=== PATIENT | female | born 1965 | race Caucasian/White ===

== ENCOUNTER → 2020-07-25 13:46 | Outpatient (CLI) | payer MEDICARE ==
[2020-05-31 14:59] VITALS: BMI 25.0
[~2020-07-25 13:46] MED LIST: ACIDOPHILUS-PE1 EACH PO; BACTRIM DS TAB1 EAC1 PO; DIFLUCAN100 MG PO; HUMALOG 30100 UNITS/ SC; KEPPRA1000 MG PO; NEURONTIN 400400 MG PO; NICODERM CQ1 EAC3 TOPICAL; NOVOLOG100 UNIT/1 SC; PROTONIX40 MG PO
== END | disposition home or self-care (01) ==
LOC: D.CT 07-24 13:00
PROVIDERS: ATTEND Surgery
DX: L02.415 Cutaneous abscess of right lower limb (principal)

== ENCOUNTER 2020-07-27 09:30 | Day surgery (SDC) | payer MEDICARE ==
[2020-07-27] VITALS (10 sets, daily range): BP systolic 117–155; BP diastolic 41–67; Ht 167.6 cm; Wt 70.5 kg
[~2020-07-27] VITALS: Ht 167.6 cm; Wt 70.5 kg
[2020-07-27 10:00] LABS: APTT 31.5 SECONDS (22.8-39.4); INR 1.38 (0.85-1.17); PROTIME 15.7 SECONDS (11.6-15.0)
[2020-07-27 10:05] LABS: ALBUMIN 2.4 g/dL (3.4-5.0); ALKALINE PHOSPHATASE 163 U/L (30-120); ALT (SGPT) 26 U/L (10-68); BILIRUBIN - TOTAL 0.92 mg/dL (0.2-1.3); CALC OSMOLALITY 286 mosm/kg (275-300); CALCIUM 8.6 mg/dL (8.5-10.1); CARBON DIOXIDE 31.9 mmol/L (21.0-32.0); CHLORIDE - SERUM 101 mmol/L (98-107); CREATININE - SERUM 0.8 mg/dL (0.6-1.3); POTASSIUM - SERUM 3.8 mmol/L (3.5-5.1); PROTEIN - SERUM 8.9 g/dL (6.4-8.2); SODIUM 138 mmol/L (136-145); UREA NITROGEN 5 mg/dL (7-18); eGFR NON AFRICAN AMERICAN 79 mL/min (90-120)
[2020-07-27 10:07] LABS: GLUCOSE 348 mg/dL (74-106)
[2020-07-27 10:30] LABS: BASOPHILS 0.4 % (0-2); EOSINOPHILS 2.8 % (0-7); HEMATOCRIT 35.1 % (36.0-48.0); HEMOGLOBIN 11.7 g/dL (12-16); IMMATURE GRANULOCYTES 0.2 % (0-5); LYMPHOCYTE ABS# 1.32 10x3/uL (1.18-3.74); LYMPHOCYTES 28.6 % (15-50); MCH 27.6 pg (26.0-34.0); MCHC 33.3 g/dL (31.0-37.0); MCV 82.8 fL (80.0-100.0); MONOCYTES 6.9 % (2-11); NEUTROPHIL ABS# 2.81 10x3/uL (1.56-6.13); NEUTROPHILS 61.1 % (40-80); PLATELET COUNT 91 10x3/uL (130-400); RBC 4.24 10x6/uL (4.00-5.40); RDW 15.9 % (11.5-14.5); WBC 4.6 10x3/uL (4.8-10.8)
[2020-07-27 11:16] LABS: PLATELET ESTIMATE DECREASED
--- NOTE | 2020-07-27 12:08 | NUR ---
FSBS RECHECK [id number]
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
--- NOTE | 2020-07-27 15:25 | NUR ---
PATIENT'S AT BEDSIDE PER PATIENT REQUEST. PATIENT REQUESTED AND GIVEN SANDWICH TRAY AND ORANGE JUICE. DENIES FURTHER NEEDS.
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
[2020-07-28 04:00] VITALS: BP 122/53
--- NOTE | 2020-07-28 04:23 | NUR ---
Microbiology came to inform nurse that culture to Rle is positive for staph. Awaiting results for MRSA. Pt placed on appropriate precaustions. Pt's spouse in room and sleeping next to her in bed. Did not want to DON PPE.
[2020-07-28 06:44] LABS: ALKALINE PHOSPHATASE 153 U/L (30-120); ALT (SGPT) 23 U/L (10-68); BILIRUBIN - TOTAL 0.43 mg/dL (0.2-1.3); CALC OSMOLALITY 287 mosm/kg (275-300); CALCIUM 8.6 mg/dL (8.5-10.1); CARBON DIOXIDE 29.4 mmol/L (21.0-32.0); CHLORIDE - SERUM 104 mmol/L (98-107); CREATININE - SERUM 0.8 mg/dL (0.6-1.3); GLUCOSE 387 mg/dL (74-106); PROTEIN - SERUM 7.8 g/dL (6.4-8.2); SODIUM 137 mmol/L (136-145); UREA NITROGEN 6 mg/dL (7-18); eGFR NON AFRICAN AMERICAN 79 mL/min (90-120)
[2020-07-28 07:04] LABS: HEMATOCRIT 32.8 % (36.0-48.0); HEMOGLOBIN 10.9 g/dL (12-16); LYMPHOCYTE ABS# 1.07 10x3/uL (1.18-3.74); MCH 27.6 pg (26.0-34.0); MCHC 33.2 g/dL (31.0-37.0); MEAN PLATELET VOLUME 9.8 fL (7.4-10.4); NEUTROPHIL ABS# 2.79 10x3/uL (1.56-6.13); PLATELET COUNT 83 10x3/uL (130-400); RBC 3.95 10x6/uL (4.00-5.40); RDW 15.9 % (11.5-14.5); WBC 4.3 10x3/uL (4.8-10.8)
[2020-07-28 07:39] LABS: LYMPHOCYTES 28 % (15-50); NEUTROPHILS 70 % (40-80); PLATELET ESTIMATE DECREASED
[2020-07-28 08:55] VITALS: BP 116/44
--- NOTE | 2020-07-28 09:19 | NUR ---
ALERT AND ORIENTED. ASSESSMENT COMPLETE. DENIES NEEDS. AT BEDSIDE. BED LOW. CALL BONDS AND PERSONAL ITEMS IN REACH. WILL CONTINUE TO MONITOR.
--- NOTE | 2020-07-28 09:52 | NUR ---
PATIENT SWITCHED OVER TO HOME WOUND VAC FOR DISCHARGE.
[2020-07-28] MEDS ORDERED: BACTRIM DS TAB1 EAC1 PO (11:31)
[2020-07-28] MEDS ORDERED: MUPIROCIN22 GM TOPICAL (11:32)
[2020-07-28] MEDS ORDERED: HYDROCODON-ACE1 EAC7 PO (11:32)
[2020-07-28 12:37] VITALS: BP 136/52
--- NOTE | 2020-07-28 12:37 | NUR ---
DC EDUCATION PROVIDED BOTH WRITTEN AND VERBAL. VERBALIZED UNDERSTANDING. DENIES FUTHER QUESTIONS. RX PROVIDED TO PATIENT FOR ABX X 2 AND PRN PAIN MEDICATION. PATIENT SIGNED THAT SHE RECEIVED RX. HOME WOUND VAC AND ALL SUPPLIES SENT HOME WITH PATIENT. IV REMOVED FROM RFA WITH TIP INTACT. BOTH PATIENT AND DENY ANY FURTHER NEEDS. PATIENT DC HOME WITH WITH ALL BELONGINGS.
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
== END 2020-07-28 13:01 | disposition home health service (06) ==
LOC: D.MS 09:30 → D.OPS 09:30 → D.MS 13:25 → D.OPS 07-28 13:01
PROVIDERS: Anesthesiology; ATTEND Surgery
DX: L02.415 Cutaneous abscess of right lower limb (principal); K74.60 Unspecified cirrhosis of liver

== ENCOUNTER 2020-08-03 12:52 | Inpatient (IN) | payer MEDICARE ==
[~2020-08-03 12:52] MED LIST changes: +HYDROCODON-ACE1 EAC7 PO; +MUPIROCIN22 GM TOPICAL
[2020-08-03 15:15] LABS: BASOPHILS 0.2 % (0-2); EOSINOPHILS 2.9 % (0-7); HEMOGLOBIN 11.2 g/dL (12-16); LYMPHOCYTE ABS# 1.55 10x3/uL (1.18-3.74); LYMPHOCYTES 34.8 % (15-50); MCH 27.7 pg (26.0-34.0); MCHC 33.9 g/dL (31.0-37.0); MCV 81.5 fL (80.0-100.0); MEAN PLATELET VOLUME 10.4 fL (7.4-10.4); MONOCYTES 8.5 % (2-11); NEUTROPHIL ABS# 2.38 10x3/uL (1.56-6.13); NEUTROPHILS 53.6 % (40-80); PLATELET COUNT 74 10x3/uL (130-400); RBC 4.05 10x6/uL (4.00-5.40); RDW 15.4 % (11.5-14.5); WBC 4.5 10x3/uL (4.8-10.8)
[2020-08-03 15:30] LABS: ALBUMIN 2.2 g/dL (3.4-5.0); ALKALINE PHOSPHATASE 153 U/L (30-120); ALT (SGPT) 21 U/L (10-68); BILIRUBIN - TOTAL 0.68 mg/dL (0.2-1.3); CALC OSMOLALITY 283 mosm/kg (275-300); CALCIUM 8.6 mg/dL (8.5-10.1); CARBON DIOXIDE 28.2 mmol/L (21.0-32.0); CHLORIDE - SERUM 99 mmol/L (98-107); CREATININE - SERUM 0.8 mg/dL (0.6-1.3); POTASSIUM - SERUM 3.6 mmol/L (3.5-5.1); PROTEIN - SERUM 8.2 g/dL (6.4-8.2); SODIUM 132 mmol/L (136-145); UREA NITROGEN 5 mg/dL (7-18); eGFR NON AFRICAN AMERICAN 79 mL/min (90-120)
[2020-08-03 15:31] LABS: GLUCOSE 492 mg/dL (74-106)
[2020-08-04 06:49] LABS: BASOPHILS 0.3 % (0-2); EOSINOPHILS 2.1 % (0-7); HEMATOCRIT 31.9 % (36.0-48.0); HEMOGLOBIN 10.6 g/dL (12-16); IMMATURE GRANULOCYTES 0.2 % (0-5); LYMPHOCYTE ABS# 1.55 10x3/uL (1.18-3.74); MCH 27.4 pg (26.0-34.0); MCHC 33.2 g/dL (31.0-37.0); MCV 82.4 fL (80.0-100.0); MEAN PLATELET VOLUME 9.9 fL (7.4-10.4); MONOCYTES 6.8 % (2-11); NEUTROPHIL ABS# 4.07 10x3/uL (1.56-6.13); NEUTROPHILS 65.6 % (40-80); PLATELET COUNT 79 10x3/uL (130-400); RBC 3.87 10x6/uL (4.00-5.40); RDW 15.7 % (11.5-14.5)
[2020-08-04 07:00] LABS: WBC 6.2 10x3/uL (4.8-10.8)
[2020-08-04 07:06] LABS: ALBUMIN 2.1 g/dL (3.4-5.0); ALKALINE PHOSPHATASE 141 U/L (30-120); ALT (SGPT) 21 U/L (10-68); BILIRUBIN - TOTAL 0.52 mg/dL (0.2-1.3); CALCIUM 8.4 mg/dL (8.5-10.1); CARBON DIOXIDE 29.6 mmol/L (21.0-32.0); CHLORIDE - SERUM 105 mmol/L (98-107); CREATININE - SERUM 0.6 mg/dL (0.6-1.3); PROTEIN - SERUM 7.7 g/dL (6.4-8.2); SODIUM 140 mmol/L (136-145); UREA NITROGEN 6 mg/dL (7-18); eGFR NON AFRICAN AMERICAN > 90 mL/min (90-120)
[2020-08-04 07:07] LABS: CALC OSMOLALITY 279 mosm/kg (275-300); GLUCOSE 148 mg/dL (74-106); POTASSIUM - SERUM 4.3 mmol/L (3.5-5.1)
[2020-08-04 11:02] LABS: PLATELET ESTIMATE DECREASED
[2020-08-04 11:03] LABS: HYPOCHROMASIA OCC
[2020-08-05 05:28] LABS: BASOPHILS 0.4 % (0-2); EOSINOPHILS 2.8 % (0-7); HEMOGLOBIN 9.9 g/dL (12-16); IMMATURE GRANULOCYTES 0.2 % (0-5); LYMPHOCYTE ABS# 1.54 10x3/uL (1.18-3.74); LYMPHOCYTES 32.8 % (15-50); MCH 27.2 pg (26.0-34.0); MCV 82.4 fL (80.0-100.0); MEAN PLATELET VOLUME 10.9 fL (7.4-10.4); MONOCYTES 8.5 % (2-11); NEUTROPHIL ABS# 2.59 10x3/uL (1.56-6.13); NEUTROPHILS 55.3 % (40-80); PLATELET COUNT 77 10x3/uL (130-400); RBC 3.64 10x6/uL (4.00-5.40); RDW 15.6 % (11.5-14.5); WBC 4.7 10x3/uL (4.8-10.8)
[2020-08-05 05:40] LABS: ALBUMIN 1.8 g/dL (3.4-5.0); ALKALINE PHOSPHATASE 131 U/L (30-120); ALT (SGPT) 16 U/L (10-68); BILIRUBIN - TOTAL 0.31 mg/dL (0.2-1.3); CALCIUM 8.1 mg/dL (8.5-10.1); CARBON DIOXIDE 28.1 mmol/L (21.0-32.0); CHLORIDE - SERUM 104 mmol/L (98-107); CREATININE - SERUM 0.7 mg/dL (0.6-1.3); SODIUM 137 mmol/L (136-145); eGFR NON AFRICAN AMERICAN > 90 mL/min (90-120)
[2020-08-05 05:46] LABS: CALC OSMOLALITY 274 mosm/kg (275-300); GLUCOSE 150 mg/dL (74-106); POTASSIUM - SERUM 3.5 mmol/L (3.5-5.1); UREA NITROGEN 8 mg/dL (7-18)
[2020-08-05] MEDS ORDERED: CLEOCIN HCL75 MG PO (11:31)
[2020-08-05] MEDS ORDERED: HUMALOG 30100 UNITS/ SC (13:13)
== END 2020-08-05 13:45 | disposition home health service (06) | DRG 571 ==
LOC: D.MS 12:52
PROVIDERS: Family Medicine; ADMIT Surgery
PROC: 0JBL0ZZ Excision of Right Upper Leg Subcutaneous Tissue and Fascia, Open Approach (ICD-10-PCS; principal; 2020-08-04 09:00)
DX: L02.415 Cutaneous abscess of right lower limb (principal); E87.1 Hypo-osmolality and hyponatremia; T76.21XA Adult sexual abuse, suspected, initial encounter; D69.6 Thrombocytopenia, unspecified; Z72.0 Tobacco use; F99 Mental disorder, not otherwise specified; K74.60 Unspecified cirrhosis of liver; J44.9 Chronic obstructive pulmonary disease, unspecified; E11.65 Type 2 diabetes mellitus with hyperglycemia; E78.5 Hyperlipidemia, unspecified; G40.909 Epilepsy, unspecified, not intractable, without status epilepticus; K21.9 Gastro-esophageal reflux disease without esophagitis; M19.90 Unspecified osteoarthritis, unspecified site